=== PATIENT | female | born 1950 | race Caucasian/White ===

== ENCOUNTER 2022-03-15 16:16 | Emergency (ER) | payer OTHER ==
[~2022-03-15] VITALS: Ht 160 cm; Wt 74.8 kg
[~2022-03-15 16:16] MED LIST: Prednisone20 MG PO
[2022-03-15] MEDS ORDERED: CLIN300 PO (19:11)
== END 2022-03-15 19:42 | disposition home or self-care (01) ==
LOC: ER 16:16
DX: R22.0 Localized swelling, mass and lump, head (principal); Z88.1 Allergy status to other antibiotic agents; Z79.52 Long term (current) use of systemic steroids
CPT/HCPCS: 70487; 99285-25; A9270; Q9967

== ENCOUNTER 2022-08-05 11:55 | Emergency (ER) | payer OTHER ==
[~2022-08-05] VITALS: Ht 160 cm; Wt 72.6 kg
[~2022-08-05 11:55] MED LIST changes: +CLIN300 PO
== END 2022-08-05 12:40 | disposition home or self-care (01) ==
LOC: ER 11:55
DX: S61.211A Laceration without foreign body of left index finger without damage to nail, initial encounter (principal); W26.9XXA Contact with unspecified sharp object(s), initial encounter
CPT/HCPCS: 99282